=== PATIENT | male | born 1995 | race Caucasian/White ===

== ENCOUNTER 2019-05-04 08:16 | Emergency (ER) | payer SELFPAY ==
[2019-05-04 08:24] VITALS: BP 112/65; PULSE 79; TEMP 98.9; BMI 25.0
[2019-05-04] MEDS ORDERED: CEFTRIAXONE 2,000 MG in DEXTROSE 5%-WATER - 50 ML IVPB ONE (08:56)
[2019-05-04] MEDS ORDERED: DEXAMETHASONE SOD PHOSPHATE 10 MG/1 ML VIAL IVPUSH ONE (08:59)
[2019-05-04] MEDS ORDERED: DEXAMETHASONE SOD PHOSPHATE 10 MG/1 ML VIAL ONE (09:03)
[2019-05-04] MEDS ORDERED: CEFTRIAXONE 2 GM/100 ML BAG IVPB ONE (09:04)
[2019-05-04] MEDS ORDERED: CLINDAMYCIN 600MG PREMIX IVPB 600 MG/50 ML BAG IVPB ONE (09:04)
[2019-05-04 09:09] LABS: BASO % 0.6 % (0-2.0); EOS % 0.1 % (0-4.5); HEMATOCRIT 37.5 % (35.4-49); HEMOGLOBIN 12.9 GM/dL (11.7-16.9); LYMPH % 6.8 % (8-40); MCH 31.9 pg (25.7-33.7); MCHC 34.3 g/dl (32.0-35.9); MEAN CELL VOLUME 93.1 fl (80-96); MEAN PLT VOLUME 8.1 fl (7.5-11.1); MONO % 7.1 % (3.8-10.2); NEUT % 85.4 % (42.8-82.8); PLATELET COUNT 269 K/MM3 (134-434); RBC 4.03 M/mm3 (4.00-5.60); WHITE BLOOD COUNT 16.8 K/mm3 (4.0-10.0)
[2019-05-04] MEDS: CLINDAMYCIN 600MG PREMIX IVPB 600 MG/50 ML BAG IVPB ONE ×2 (09:13→09:42)
[2019-05-04 09:25] LABS: INR 1.38 (0.83-1.09); PROTHROMBIN TIME (PATIENT) 16.3 SEC (9.7-13.0)
[2019-05-04 09:36] LABS: ALBUMIN 4.1 g/dl (3.4-5.0); BILIRUBIN,TOTAL 0.6 mg/dL (0.2-1); BLOOD UREA NITROGEN 10.2 mg/dL (7-18); CALCIUM 9.1 mg/dL (8.5-10.1); CREATININE 0.8 mg/dL (0.55-1.3); POTASSIUM 3.9 mmol/L (3.5-5.1)
--- NOTE | 2019-05-04 09:56 | PDOC ---
History of Present Illness - General Chief Complaint: Sore Throat Stated Complaint: THROAT PAIN Time Seen by Provider: 05/04/19 08:30 History Source: Patient Exam Limitations: No Limitations Past History - Travel Traveled outside of the country in the last 30 days: No Close contact w/someone who was outside of country & ill: No - Past Medical History Allergies/Adverse Reactions: Allergies Allergy/AdvReac Type Severity Reaction Status Date / Time No Known Allergies Allergy Verified 05/04/19 08:24 Home Medications: Ambulatory Orders NK [No Known Home Medication] 05/04/19 COPD: No - Suicide/Smoking/Psychosocial Hx Smoking History: Unknown if ever smoked Review of Systems - Review of Systems Able to Perform ROS?: Yes Comments:: 05/04/19 09:37 CONSTITUTIONAL: Absent: fever, chills, diaphoresis, generalized weakness, malaise, loss of appetite HEENT: Present: sore throat, difficulty swallowing, throat swelling, voice changes Absent: rhinorrhea, nasal congestion, mouth swelling, ear pain, eye pain, visual Changes CARDIOVASCULAR: Absent: chest pain, loss of consciousness, palpitations, irregular heart rate, peripheral edema RESPIRATORY: Absent: cough, shortness of breath, dyspnea with exertion, orthopnea, wheezing, stridor, hemoptysis GASTROINTESTINAL: Absent: abdominal pain, abdominal distension, nausea, vomiting, diarrhea, constipation, melena, hematochezia GENITOURINARY: Absent: dysuria, frequency, urgency, hesitancy, hematuria, flank pain, genital pain MUSCULOSKELETAL: Absent: myalgia, arthralgia, joint swelling SKIN: Absent: rash, itching, pallor HEMATOLOGIC/IMMUNOLOGIC: Absent: easy bleeding, easy bruising, lymphadenopathy, frequent infections ENDOCRINE: Absent: unexplained weight gain, unexplained weight loss, heat intolerance, cold intolerance NEUROLOGIC: Absent: headache, focal weakness or paresthesias, dizziness, unsteady gait, seizure, mental status changes, bladder or bowel incontinence PSYCHIATRIC: Absent: anxiety, depression, suicidal or homicidal ideation, hallucinations. Is the patient limited Jamaican proficient: No *Physical Exam - Vital Signs Last Vital Signs Temp Pulse Resp BP Pulse Ox 98.9 F 79 18 112/65 99 05/04/19 08:23 05/04/19 08:23 05/04/19 08:23 05/04/19 08:23 05/04/19 08:23 - Physical Exam Comments: 05/04/19 11:43 GENERAL: Well developed, well nourished. Awake and alert. No acute distress. EYES: The pupils are equal, round and reactive to light. Conjunctiva are clear. HEENT: No nasal congestion or rhinorrhea. No sinus Tenderness. Mucous membranes are moist. (+) R sided tonsillar erythema with exudate and edema. (+) Uvula deviation to the L . No TM bulging, dullness or erythem NECK: Supple. Full ROM. No JVD. Carotid pulses 2+ and symmetric, without bruits. No thyromegaly. (+) cervical lymphadenopathy. CARDIOVASCULAR: Regular rate and rhythm. No murmurs, rubs, or gallops. Distal pulses are 2+ and symmetric. PULMONARY: No evidence of respiratory distress. Lungs clear to auscultation bilaterally. No wheezing, rales or rhonchi. SKIN: Warm and dry. Normal capillary refill. No rashes. No jaundice. NEUROLOGICAL: Alert, awake, appropriate. Cranial nerves 2-12 intact. No deficits to light touch and temperature in face, upper extremities and lower extremities. No motor deficits in the in face, upper extremities and lower extremities. Normoreflexic in the upper and lower extremities. Normal speech. Toes are down- going bilaterally. Gait is normal without ataxia. PSYCHIATRIC: Cooperative. Good eye contact. Appropriate mood and affect ED Treatment Course - LABORATORY CBC & Chemistry Diagram: 05/04/19 08:59 05/04/19 08:59 - ADDITIONAL ORDERS Additional order review: Laboratory Results 05/04/19 05/04/19 08:59 08:59 PT with INR 16.30 H INR 1.38 H Sodium 140 Potassium 3.9 Chloride 107 Carbon Dioxide 26 Anion Gap 7 L BUN 10.2 Creatinine 0.8 Est GFR (CKD-EPI)AfAm 145.93 Est GFR (CKD-EPI)NonAf 125.91 Random Glucose 89 Calcium 9.1 Total Bilirubin 0.6 AST 15 ALT 24 Alkaline Phosphatase 80 Total Protein 8.0 Albumin 4.1 05/04/19 08:59 RBC 4.03 MCV 93.1 MCHC 34.3 RDW 13.0 MPV 8.1 Neutrophils % 85.4 H Lymphocytes % 6.8 L Monocytes % 7.1 Eosinophils % 0.1 Basophils % 0.6 - Medications Given in the ED: ED Medications Discontinued Medications Generic Name Dose Route Start Last Admin Trade Name Sherrie PRN Reason Stop Dose Admin Dexamethasone Sodium Phosphate 10 mg 05/04/19 08:59 05/04/19 09:13 Decadron Injection - IVPUSH 05/04/19 09:00 10 mg ONCE ONE Administration Ceftriaxone Sodium 2,000 mg/ 50 mls @ 100 mls/hr 05/04/19 08:56 05/04/19 09: 13 Dextrose IVPB 05/04/19 09:25 100 mls/hr ONCE ONE Administration Clindamycin Phosphate 600 mg in 50 mls @ 100 mls/hr 05/04/19 08:59 05/04/19 09:13 Cleocin 600 Mg Premix Ivpb - IVPB 05/04/19 09:28 100 mls/hr ONCE ONE Administration Protocol Medical Decision Making - Medical Decision Making 05/04/19 11:44 The patient is a 23-year-old female with no past medical history who presents to the ER today with 5 days of sore throat. He states that over the course of the past 5 days he feels like there is a lump in the back of his throat and traveling down to his neck. He states that he has felt febrile with chills however he has not taken his temperature. He states that it hurts to swallow. Denies cough, difficulty breathing, shortness of breath and chest pain A/P: Right-sided [employer] On exam the right tonsil is erythematous, edematous with exudates and pushing the uvula to the left. Rapid strep test is positive. Spoke with Dr. 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 He states that he can see the patient in his office this morning and to send him over after basic labs and IV medication has been given for drainage. 2 g of ceftriaxone, 600 mg of Cleocin and 10 mg of Decadron given IV Labs show leukocytosis to 16. VSS, Pt afebrile Patient reports feeling slightly better after the Decadron. The airway is currently open clear and maintained. No excess saliva or secretions present. Patient is safe to discharge to Dr. Galloway's office at this time. Patient understands that he needs to go straight to Dr. Galloway's office at this time and states he will go I discussed the physical exam findings, ancillary test results and final diagnoses with the patient. I answered all of the patient's questions. The patient was satisfied with the care received and felt comfortable with the discharge plan and treatment plan. The Patient agrees to follow up with the primary care physician/specialist within 24-72 hours. Return precautions were given. *DC/Admit/Observation/Transfer Diagnosis at time of Disposition: Peritonsillar abscess - Discharge Dispostion Disposition: HOME Condition at time of disposition: Stable Decision to Admit order: No - Referrals Referrals: Iker Galloway MD [Staff Physician] - - Patient Instructions Printed Discharge Instructions: DI for Peritonsillar Abscess -- Child Additional Instructions: You have a peritonsilar abscess due to strep throat Please go directly to Dr. Galloway's office from the ER. He is expecting you and will drain the abscess today You have a copy of your lab work attached Return to the ER for worsening pain, fever, vomiting, difficulty breathing or if you have any changes in your symptoms - Post Discharge Activity Forms/Work/School Notes: Back to Work
== END 2019-05-04 10:04 | disposition home or self-care (01) ==
LOC: JERFT 08:16
PROC: 3E03329 Introduction of Other Anti-infective into Peripheral Vein, Percutaneous Approach (ICD-10-PCS; principal; 2019-05-04)
PROC: 3E033GC Introduction of Other Therapeutic Substance into Peripheral Vein, Percutaneous Approach (ICD-10-PCS; 2019-05-04)
DX: J36 Peritonsillar abscess (principal)
CPT/HCPCS: 36415; 80053; 85025; 85610; 86850; 86900; 86901; 87880; 99282-25; J1100